=== PATIENT | male | born 1995 | race Caucasian/White ===

== ENCOUNTER 2020-11-09 22:30 | Emergency (ER) | payer OTHER ==
[~2020-11-09] VITALS: Ht 167.6 cm; Wt 72.2 kg
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
[2020-11-10 01:13] VITALS: BP 117/78
[2020-11-10] MEDS ORDERED: ACETAMINOPHEN 500 MG TAB PO ONE (01:55)
== END 2020-11-10 02:12 | disposition home or self-care (01) ==
LOC: M ED 22:30
DX: S09.90XA Unspecified injury of head, initial encounter (principal); M54.2 Cervicalgia; S00.11XA Contusion of right eyelid and periocular area, initial encounter; Y04.8XXA Assault by other bodily force, initial encounter; Y92.9 Unspecified place or not applicable; Y93.9 Activity, unspecified; Y99.9 Unspecified external cause status

== ENCOUNTER 2021-08-07 22:37 | Emergency (ER) | payer OTHER ==
[~2021-08-07] VITALS: Ht 167.6 cm; Wt 76.9 kg
[2021-08-08] MEDS ORDERED: METOCLOPRAMIDE 10MG TAB PO ONE (07:15)
[2021-08-08] MEDS ORDERED: NAPROXEN 250 MG TAB PO ONE (07:15)
[2021-08-08 07:30] VITALS: BP 117/63
== END 2021-08-08 07:30 | disposition home or self-care (01) ==
LOC: M ED 22:37
DX: S06.0X0A Concussion without loss of consciousness, initial encounter (principal); W22.8XXA Striking against or struck by other objects, initial encounter; Y99.1 Military activity; Y92.84 Military training ground as the place of occurrence of the external cause